=== PATIENT | male | born 1990 | race American Indian/Alaskan Native ===

== ENCOUNTER 2017-10-17 13:35 | Emergency (ER) | payer MEDICAID ==
[2017-10-17 13:59] VITALS: BP 122/84; PULSE 91; RESP 18; TEMP 98.8; O2SAT 100
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
== END 2017-10-17 14:14 | disposition home or self-care (01) ==
LOC: H.ER 13:35
DX: Q38.3 Other congenital malformations of tongue (principal)

== ENCOUNTER 2017-11-11 10:08 | Emergency (ER) | payer MEDICAID ==
[2017-11-11 10:21] VITALS: BMI 22.7
[2017-11-11 10:22] VITALS: BP 123/72; PULSE 76; RESP 20; TEMP 98.6; O2SAT 98
== END 2017-11-11 10:40 | disposition left against medical advice (07) ==
LOC: H.ER 10:08
DX: Z02.89 Encounter for other administrative examinations (principal)

== ENCOUNTER 2017-11-14 08:34 | Emergency (ER) | payer MEDICAID ==
[2017-11-14 08:39] VITALS: BMI 23.1
[2017-11-14 08:40] VITALS: BP 113/68; PULSE 86; RESP 17; TEMP 98.4; O2SAT 98
== END 2017-11-14 09:45 | disposition left against medical advice (07) ==
LOC: H.ER 08:34
DX: Z02.89 Encounter for other administrative examinations (principal)